=== PATIENT | female | born 1975 | race Caucasian/White ===

== ENCOUNTER → 2017-01-31 | Emergency (ER) | payer SELFPAY ==
[~2017-01-31] MED LIST: IBUPROFEN 600 MG TABLET (FP) PO ONE
[2017-01-31 16:44] VITALS: TEMP 98.5; BMI 22.3
--- NOTE | 2017-01-31 17:49 | PDOC ---
[id number] No Limitations - History of Present Illness Initial Comments: CHIEF COMPLAINT: 41 y/o afebrile female with no significant PMH c/o lower back pain for the past 1 week. HISTORY OF PRESENT ILLNESS: The patient states the pain is intermittent and the worst when she is lying flat. She states she also had intermittent dysuria and chills this week but those have resolved. 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 She denies trauma to back, fall, f/c, n/v/d, CP, SOB, hematuria, radiation of pain into her butt or legs. She has not taken anything for the pain because she does not like to take medication. Vital signs on arrival are notable for pulse of 53. REVIEW OF SYSTEMS: GENERAL/CONSTITUTIONAL: Intermittent chills. No fever. No weakness. No weight change. HEAD, EYES, EARS, NOSE AND THROAT: No change in vision. No ear pain or discharge. No sore throat. CARDIOVASCULAR: No chest pain or shortness of breath. RESPIRATORY: No cough, wheezing, or hemoptysis. GASTROINTESTINAL: No abd pain, nausea, vomiting, diarrhea. GENITOURINARY: +intermittent dysuria. No hematuria. MUSCULOSKELETAL: No joint or muscle swelling or pain. No neck pain. +low back pain. SKIN: No rash or easy bruising. NEUROLOGIC: No headache, vertigo, loss of consciousness, or loss of sensation. PHYSICAL EXAM: GENERAL: The patient is awake, alert, and fully oriented, in no acute distress. She is well appearing, ambulatory, and very muscular. She moves without any indication of pain. HEAD: Normal with no signs of trauma. ENT: Pupils equal, round and reactive to light, extraocular movements intact, sclera anicteric, conjunctiva clear. Neck supple. LUNGS: Clear to auscultation bilaterally. Normal excursion. No respiratory distress or use of accessory muscles. CV: RRR, S1/S2, no MRG. Cap refill < 2 sec. ABDOMEN: Soft, non-distended, non-tender even to deep palpation, no hepatomegaly or splenomegaly, no masses. No suprapubic TTP. No flank pain b/l. BACK: No midline lumbar spine TTP or step offs. No CVA TTP b/l. No TTP of lumbar paravertebral muscles b/l. Full ROM of lumbar spine. EXTREMITIES: Normal range of motion, no edema. NEUROLOGICAL: Normal speech, normal gait. CN II-XII grossly intact. PSYCH: Normal mood, normal affect. SKIN: Warm, dry, normal turgor, no rashes or lesions noted. <Linda Menon - Last Filed: 01/31/17 18:57> <Elysia Obrien - Last Filed: 02/03/17 12:09> - General Chief Complaint: Pain Stated Complaint: BACK/ABDOMINAL PAIN Time Seen by Provider: 01/31/17 16:58 Past History - Past Medical History Other medical history: denies - Psycho/Social/Smoking Cessation Hx Suicidal Ideation: No Smoking History: Never smoked Information on smoking cessation initiated: No Hx Alcohol Use: No Drug/Substance Use Hx: No Substance Use Type: None <Linda Menon - Last Filed: 01/31/17 18:57> <Elysia Obrien - Last Filed: 02/03/17 12:09> - Past Medical History Allergies/Adverse Reactions: Allergies Allergy/AdvReac Type Severity Reaction Status Date / Time No Known Allergies Allergy Verified 01/31/17 16:44 Home Medications: Ambulatory Orders NK [No Known Home Medication] 01/31/17 *Physical Exam - Vital Signs Last Vital Signs Temp Pulse Resp BP Pulse Ox 98.5 F 53 L 18 106/71 100 01/31/17 16:43 01/31/17 16:43 01/31/17 16:43 01/31/17 16:43 01/31/17 16:43 <Linda Menon - Last Filed: 01/31/17 18:57> - Vital Signs Last Vital Signs Temp Pulse Resp BP Pulse Ox 98.5 F 58 L 18 112/65 99 01/31/17 16:43 01/31/17 18:34 01/31/17 18:34 01/31/17 18:34 01/31/17 18:34 <Elysia Obrien - Last Filed: 02/03/17 12:09> ED Treatment Course - ADDITIONAL ORDERS Additional order review: 01/31/17 17:36 Urine Culture - Final Urine - Urine Clean Catch Escherichia Coli - Medications Given in the ED: ED Medications Discontinued Medications Generic Name Dose Route Start Last Admin Trade Name Freq PRN Reason Stop Dose Admin Ibuprofen 600 mg 01/31/17 18:23 01/31/17 18:33 Motrin - PO 01/31/17 18:24 600 mg ONCE ONE Administration <ObrienElysia - Last Filed: 02/03/17 12:09> Medical Decision Making - Medical Decision Making A/P: 41 y/o afebrile female with intermittent LBP and dysuria for the past 1 week. Plan is as follows: 1. UA/hcg/culture 2. PO Motrin UA negative for UTI or blood Pt states she feels much better after motrin with complete resolution of pain. Will discharge to home with dx of low back pain. Instructed her to avoid heavy lifting until symptoms improve, stretch multiple times per day, take OTC motrin every 6 hours for pain with food and f/u with Dr. Montana within 1 week. Instructed her to return to the ER with any worsening or concerning symptoms. The patient verbalizes understanding of all instructions, has no further questions and is awaiting discharge. <Linda Menon - Last Filed: 01/31/17 18:57> *DC/Admit/Observation/Transfer <Linda Menon - Last Filed: 01/31/17 18:57> - Attestations Physician Attestion: I reviewed the case with the mid-level practitioner and agree with the mid- level practitioner's assessment, diagnosis and disposition. <MicahElysia - Last Filed: 02/03/17 12:09> Diagnosis at time of Disposition: Low back pain Qualifiers: Chronicity: acute Back pain laterality: bilateral Sciatica presence: without sciatica Qualified Code(s): M54.5 - Low back pain - Discharge Dispostion Disposition: HOME Condition at time of disposition: Improved - Referrals Referrals: Lee Montana MD [Staff Physician] - Call tomorrow - Patient Instructions Printed Discharge Instructions: DI for Low Back Pain Additional Instructions: Discharge Instructions: -Avoid heavy lifting until your pain has improved -Stretch your low back multiple times per day -Take 600mg of over the counter Motrin every 6 hours for pain with food -Follow up with Dr. Montana within 1 week -Return to the ER with any worsening or concerning symptoms
[2017-01-31 18:13] LABS: URINE APPEARANCE CLEAR; URINE BILIRUBIN NEGATIVE (NEGATIVE); URINE BLOOD NEGATIVE (NEGATIVE); URINE COLOR STRAW; URINE GLUCOSE (UA) NEGATIVE (NEGATIVE); URINE KETONE NEGATIVE (NEGATIVE); URINE NITRITE NEGATIVE (NEGATIVE); URINE PROTEIN NEGATIVE (NEGATIVE); URINE UROBILINOGEN NEGATIVE E.U./dl (0.2-1.0)
[2017-01-31 18:14] LABS: URINE LEUK ESTERASE 1+ (NEGATIVE)
[2017-01-31 18:15] LABS: URINE RBC <1 /hpf (0-3); URINE WBC 7 /hpf (3-5)
[2017-01-31 18:35] VITALS: BP 112/65; PULSE 58
== END | disposition home or self-care (01) ==
LOC: JER 16:40
DX: M54.5 Low back pain (principal)
CPT/HCPCS: 81003; 81015; 87086; 87186; 99283-25